=== PATIENT | female | born 1940 | race Caucasian/White ===

== ENCOUNTER 2017-06-22 14:01 | Emergency (ER) | payer OTHER, BC ==
--- NOTE | 2017-06-22 14:07 | PDOC ---
History of Present Illness - General History Source: Patient Exam Limitations: No Limitations - History of Present Illness Initial Comments: 06/22/17 14:36 The patient is a 76 year old woman with past medical history of hypertension, hyperlipidemia, and hypothyroidism who presents to the ED with complaints of lower back pain that began yesterday. The patient locates her pain to her mid lower back and states that it radiates down her left buttock. She reports the pain is present upon movement of her extremities and walking. It is associated with nausea but denies vomiting. She denies any heavy lifting, twisting, or injury. She denies any fevers or chills. Patient denies history of sciatica. <Jamila Doty - Last Filed: 06/22/17 16:50> - General History Source: Patient, Family Exam Limitations: No Limitations <Selma Robb - Last Filed: 06/22/17 17:50> - General Chief Complaint: Back Pain Stated Complaint: lower back pain Time Seen by Provider: 06/22/17 14:06 Past History <Jamila Doty - Last Filed: 06/22/17 16:50> <Selma Robb - Last Filed: 06/22/17 17:50> - Past Medical History Allergies/Adverse Reactions: Allergies Allergy/AdvReac Type Severity Reaction Status Date / Time No Known Allergies Allergy Verified 06/22/17 14:01 Home Medications: Ambulatory Orders Cholecalciferol (Vitamin D3) [Vitamin D3] 2,000 unit PO DAILY capsule 02/18/13 Glucosam/Chondr/Collagn/Hyalur [Glucosamine & Chondroitin Cap] 1 each PO DAILY capsule 02/18/13 [place]-3 Fatty Acids/Fish Oil [Fish Oil 1,000 Mg Capsule] 1 each PO DAILY capsule 12/21/15 Methocarbamol [Robaxin -] 500 mg PO BID PRN #14 tablet 06/22/17 Tramadol HCl 50 mg PO QID PRN #12 tablet MDD 4 tabs 06/22/17 Review of Systems - Review of Systems Able to Perform ROS?: Yes Comments:: 06/22/17 14:37 GENERAL/CONSTITUTIONAL: No fever or chills. No weakness. HEAD, EYES, EARS, NOSE AND THROAT: No change in vision. No ear pain or discharge. No sore throat. CARDIOVASCULAR: No chest pain or shortness of breath. RESPIRATORY: No cough, wheezing, or hemoptysis. GASTROINTESTINAL: No nausea, vomiting, diarrhea or constipation. GENITOURINARY: No dysuria, frequency, or change in urination. MUSCULOSKELETAL: Present: lower back pain, radiating to left buttock No neck pain. SKIN: No rash NEUROLOGIC: No headache, vertigo, loss of consciousness, or change in strength/ sensation. ENDOCRINE: No increased thirst. No abnormal weight change. HEMATOLOGIC/LYMPHATIC: No anemia, easy bleeding, or history of blood clots. ALLERGIC/IMMUNOLOGIC: No hives or skin allergy. <GómezvíctorJamila - Last Filed: 06/22/17 16:50> *Physical Exam - Vital Signs Last Vital Signs Temp Pulse Resp BP Pulse Ox 97.3 F L 57 L 20 166/74 100 06/22/17 14:01 06/22/17 14:01 06/22/17 14:01 06/22/17 14:01 06/22/17 14:01 <Jamila Doty - Last Filed: 06/22/17 16:50> - Physical Exam Comments: GENERAL: Awake, alert, and fully oriented, in no acute distress HEAD: No signs of trauma EYES: PERRLA, EOMI, sclera anicteric, conjunctiva clear ENT: Auricles normal inspection, hearing grossly normal, nares patent, oropharynx clear without exudates. Moist mucosa NECK: Normal ROM, supple, no lymphadenopathy, JVD, or masses LUNGS: Breath sounds equal, clear to auscultation bilaterally. No wheezes, and no crackles HEART: Regular rate and rhythm, normal S1 and S2, no murmurs, rubs or gallops ABDOMEN: Soft, nontender, normoactive bowel sounds. No guarding, no rebound. No masses MSK: Normal range of motion, no edema. No clubbing or cyanosis. No cords, erythema. L SLR positive at 30 degrees. +Midline tenderness to L-spine. NEUROLOGICAL: Cranial nerves II through XII grossly intact. Normal speech. Motor and sensation intact. +Antalgic gait. SKIN: Warm, Dry, normal turgor, no rashes or lesions noted. <Selma Robb - Last Filed: 06/22/17 17:50> ED Treatment Course - RADIOLOGY Radiograph Interpretation: 06/22/17 16:50 EXAM: CT of the lumbar spine without contrast By: Gurpreet Haq MD IMPRESSION: Degenerative changes as indicated. There is also a dextroscoliosis and a grade 1 spondylolisthesis of L5 upon S1 - Medications Given in the ED: ED Medications Discontinued Medications Generic Name Dose Route Start Last Admin Trade Name [place]és PRN Reason Stop Dose Admin Tramadol HCl 50 mg 06/22/17 14:19 06/22/17 14:23 Ultram - PO 06/22/17 14:20 50 mg ONCE ONE Administration <Jamila Doty - Last Filed: 06/22/17 16:50> Medical Decision Making - Medical Decision Making 06/22/17 15:17 Pt initially in severe pain, would have been unable to tolerate any imaging studies. Received tramadol and now valium. will obtain CT lumbar spine to r/o compression fx, as XR likely to be inadequate. 06/22/17 17:49 Pt ambulatory, stable for DC home. Counseled to f/u with Dr. Hawkins and Dr. Baum. <Selma Robb - Last Filed: 06/22/17 17:50> *DC/Admit/Observation/Transfer - Attestations Scribe Attestion: 06/22/17 14:38 Documentation prepared by Jamila Doty, acting as medical billing manager for Selma Robb MD. <Jamila Doty - Last Filed: 06/22/17 16:50> - Discharge Dispostion Admit: No <Selma Robb - Last Filed: 06/22/17 17:50> Diagnosis at time of Disposition: Sciatica Qualifiers: Laterality: left Qualified Code(s): M54.32 - Sciatica, left side - Discharge Dispostion Disposition: HOME Condition at time of disposition: Stable - Prescriptions Prescriptions: Methocarbamol [Robaxin -] 500 mg PO BID PRN #14 tablet PRN Reason: Muscle Spasms Tramadol HCl 50 mg PO QID PRN #12 tablet MDD 4 tabs PRN Reason: Severe Pain - Referrals Referrals: Biju Baum MD [Staff Physician] - - Patient Instructions Printed Discharge Instructions: DI for Back Pain With Sciatica
[2017-06-22 14:14] VITALS: BP 166/74; PULSE 57; TEMP 97.3; BMI 36.3
[2017-06-22] MEDS ORDERED: traMADol HCL 50 MG TABLET PO ONE (14:19)
[2017-06-22] MEDS ORDERED: traMADol HCL 50 MG TABLET ONE (14:20)
[2017-06-22] MEDS ORDERED: diazePAM 5 MG TABLET PO ONE (14:58)
[2017-06-22] MEDS ORDERED: diazePAM 5 MG TABLET ONE (14:59)
== END 2017-06-22 18:03 | disposition home or self-care (01) ==
LOC: FER 14:01
DX: M54.32 Sciatica, left side (principal)
CPT/HCPCS: 72131-TC; 99283-25

== ENCOUNTER 2021-07-13 08:10 | Day surgery (SDC) | payer OTHER, BC ==
[2021-07-11 16:45] VITALS: BMI 24.6
[2021-07-13 10:47] VITALS: BP 123/84; PULSE 58; TEMP 98.1
== END 2021-07-13 10:45 | disposition home or self-care (01) ==
LOC: FASU-ENDO 08:10
PROVIDERS: ATTEND Internal Medicine Gastroenterology
PROC: 0DJD8ZZ Inspection of Lower Intestinal Tract, Via Natural or Artificial Opening Endoscopic (ICD-10-PCS; principal; 2021-07-13 09:51)
DX: Z86.010 Personal history of colon polyps (principal); Z83.71 Family history of colonic polyps; R19.5 Other fecal abnormalities

== ENCOUNTER → 2023-07-24 | Day surgery (SDC) | payer OTHER, BC | END | disposition home or self-care (01) | LOC: JRADUS-SUR 08:58 | PROVIDERS: ATTEND Internal Medicine Geriatric Medicine | PROC: 0H9U3ZX Drainage of Left Breast, Percutaneous Approach, Diagnostic (ICD-10-PCS; principal; 2023-07-24) | DX: C50.912 Malignant neoplasm of unspecified site of left female breast (principal) | CPT/HCPCS: 19083; 77065-TC; 87899; A4648 ==